=== PATIENT | female | born 1965 | race Caucasian/White ===

== ENCOUNTER → 2016-11-07 | Outpatient (CLI) | payer OTHER ==
[~2016-11-07] MED LIST: AMBIEN10 MG PO; BENTYL20 MG PO; DICLOFENAC; FLAGYL PO; FLEXERIL10 M1 PO; LOMOTIL TABLET1 TAB; PERCOCET PO; PHENERGAN25 M1 PO; PHENERGAN25 MG PO; PRILOSEC PO; PRILOSEC40 MG PO; SUPER B COMPLEX1 CAP PO; VITAMIN B-12250 MCG PO; VITAMIN C500 M5 PO; WELLBUTRIN; [UNRECOGNIZED DRUG - OTHER] PO
== END | disposition home or self-care (01) ==
LOC: CECH 09:25
DX: R55 Syncope and collapse (principal)
CPT/HCPCS: 93306